=== PATIENT | female | born 1935 | race Caucasian/White ===

== ENCOUNTER 2017-11-22 13:12 | Observation (INO) | payer MEDICARE, BC ==
--- NOTE | 2017-11-22 13:46 | ERNOTE ---
Neuro HPI ER Record Presenting Symptoms: weakness Time Seen by Provider: 11/22/17 13:28 Source: patient, family Exam Limitations: no limitations Immunizations: IMMUNIZATION HX Immunizations Up to Date Yes History of Influenza Vaccine Yes Hx Pneumococcal Vaccination Yes Allergies/Adverse Reactions: Allergies Allergy/AdvReac Type Severity Reaction Status Date / Time adhesive Allergy Verified 11/22/17 13:26 Home Medications: HOME MEDICATIONS metFORMIN HCL [Metformin HCl ER] 1,000 mg PO BID 09/13/12 [Last Taken 08/15/15 08:00] Glimepiride 4 mg PO DAILY #0 09/30/12 [Last Taken 08/15/15 08:00] Enalapril Maleate [Vasotec] 20 mg PO DAILY 01/08/14 [Last Taken 08/15/15 08:00] Levothyroxine Sodium [Synthroid] 100 mcg PO DAILY 01/08/14 [Last Taken 08/15/15 08:00] Docusate Sodium [Colace] 100 mg PO BID PRN #30 capsule 01/09/14 [Last Taken 08:00] - History of Present Illness Narrative: Patient presents to the ED for progressive generalized weakness. She has been increasingly ill for 7 days. She had an abdominal paracentesis yesterday and a large amount of fluid removed. SHe feels generally SOB, gradually increasing. Increasingly fatigued and generalized weakness and malaise. No CP ro acute abdominal pain. No fever. Noting makes this better or worse. Onset: gradual onset - Character of Deficits New weakness: Present: general (diffuse) Additional Deficits: Present: weakness. Absent: vision problems Associated Symptoms: Denies: fever/chills, chest pain, headache, fainting Prior Treament: Reports: recently seen Review of Systems - Review of Systems Constitutional: Absent: fever EYE: Absent: vision changes ENT: Absent: sore throat Respiratory: Present: shortness of breath. Absent: cough Cardiology: Absent: chest pain Gastrointestinal/Abdominal: Present: See HPI Genitourinary: Absent: dysuria Skin: Absent: rash Neurological: Present: weakness All Other Systems: All systems neg except as marked - Patient's Past Medical History Patient History - Medical: Arthritis, Diabetes Type 2, Hypothyroidism, Obesity, UTI'S Patient History - Cardiac/Respiratory: Hypertension Patient History - Cancer: Breast, Other Patient History - Surgical Procedures: Appendectomy, Colonoscopy, Tubal Ligation Patient History - Other: None LMP (females 10-50): post - Family History Mother Family History - Medical: Family History - Cardiac/Respiratory: Myocardial Infarction Father Family History - Medical: Family History - Cancer: Prostate - Social History Living Situations: home Abuse History: No History of abuse Psych History: No pertinent hx Smoking Status: Former smoker Alcohol Use: none Drug Use: none - Immunizations Immunizations Up to Date: Yes Hx Pneumococcal Vaccination: Yes History of Influenza Vaccine: Yes Physical Exam - Physical Exam General Appearance: Present: alert, no apparent distress, other Head Exam: Present: normal inspection, no evidence of injury Eye Exam: Normal inspection: bilateral, PERRL: bilateral Ears, Nose, Throat: Absent: pharyngeal erythema Neck: Present: normal inspection Respiratory: Present: no respiratory distress, normal breath sounds, no accessory muscle use, lungs clear Cardiovascular/Chest: Present: regular rate, rhythm, normal peripheral pulses Gastrointestinal/Abdominal: Present: normal bowel sounds, nontender, soft Back Exam: Absent: CVA tenderness (R), CVA tenderness (L) Extremity Exam: Present: other - no deformity Neurological Exam: Present: alert, other - generalized weakness. No acute unilateral focal motor or sensory deficits Skin Exam: Present: normal color, warm/dry ED Progress - Results and Orders Patient's Lab Results:: I have reviewed the patient's lab results. - Vital Signs Patient's Vital Signs:: I have reviewed the patient's vital signs. Vital Signs: Vital Signs 11/22/17 13:20 Temperature 36.4 C L Pulse Rate 94 Respiratory 16 Rate Blood Pressure 133/77 O2 Sat by Pulse 95 Oximetry - EKG EKG: NSR EKG read: Interp. by me EKG Comments: NSR rate 90. Non-specific ST/T wave changes, no STEMI - X-Ray X-Ray #1 X-Ray: chest Interpretation: Interp. by me X-ray Comments: NAPP. Yet to be read by radiology - Progress/Reassessment Chief Complaint: Altered Mental Status Progress Note-Subjective: 11/22/17 16:22 IV fluid given. Oral lactulose ordered. Patient requests to stay here in [facility] at the hospital rather than be transferred. D/W Dr Jaramillo then with Dr Orourke. Dr Orourke will admit. Failure to thrive, generalized weakness Departure Clinical Impression: Generalized weakness, Failure to thrive in adult, Hyperammonemia - Departure Disposition: [facility] Condition: Fair Referrals: Gina Jaramillo DO [Primary Care Provider] -
[2017-11-22 14:04] LABS: Hematocrit 37.4 % (37.0-47.0); Hemoglobin 13.2 gm/dL (12.5-16.0); Mean Cell Volume 99.5 fl (78-100); Mean Corpuscular Hemoglobin 35.1 pg (27-31); Mean Corpuscular Hgb Conc 35.3 g/dl (32-36); Mean Platelet Volume 9.1 fl (6.0-9.5); NRBC# 0.2 k/mm3 (0-1); Neutrophil # 6.8 K/mm3 (1.3-6.0); Neutrophil % 72.9 % (42-75.0); Platelet Count 135 K/mm3 (150-450); Red Blood Count 3.76 M/mm3 (4.2-5.4); Red Cell Distribution Width 17.2 % (11.5-14.0); White Blood Count 9.3 K/mm3 (4.0-10.5)
[2017-11-22 14:24] LABS: ALT 44 U/L (19-67); AST 213 U/L (0-48); Albumin * 2.7 gm/dl (3.4-5.0); Alkaline Phosphatase * 253 U/L (50-170); Anion Gap 17.1 mmol/L (6.8-13.8); BUN/Creatinine Ratio 18.7 (9.0-21.6); Bilirubin, Total 1.4 mg/dL (0.0-1.1); Blood Urea Nitrogen 35 mg/dL (3-23); Ca. Corrected For Albumin 9.5 mg/dL (8.4-10.2); Calcium * 8.8 mg/dL (7.9-10.9); Carbon Dioxide 19.9 mmol/L (24-32.6); Chloride 97 mmol/L (97-106); Glucose * 283 mg/dL (70-110); Lipase 272 U/L (73-393); Sodium 129 mmol/L (132-142); Total Protein 6.4 gm/dL (6.2-8.2); Troponin I Less than 0.017 ng/ml (0.00-0.10)
[2017-11-22] MEDS: NORMAL SALINE 1,000 ML IV PRN ×2 (14:27→23:07)
[2017-11-22 15:24] LABS: Urine Bilirubin Negative (NEGATIVE); Urine Blood 25 /ul (NEGATIVE); Urine Ketone Negative (NEGATIVE); Urine Nitrite Negative (NEGATIVE); Urine Protein Negative (NEGATIVE); Urine Specific Gravity >=1.030 SP.GR. (1.005-1.010); Urine Urobilinogen Normal (NORMAL); Urine pH 5.5 pH (5.0-7.0)
[2017-11-22 15:38] LABS: Urine Appearance Clear; Urine Bacteria 1+; Urine Color Yellow; Urine WBC 0-5 /hpf (0-5)
[2017-11-22] MEDS ORDERED: LACTULOSE 10 G/15 ML BTL PO ONE (17:00)
--- NOTE | 2017-11-22 18:14 | HP ---
Chief Complaint - Chief Complaint Date of Service: 11/22/17 Time of Service: 18:07 Chief Complaint: generalized weakness History of Present Illness: Aristeo is an 82-year-old white female, patient of Dr. Jaramillo, with previous medical history of diabetes mellitus type 2, malignant breast carcinoma, metastatic to the bone, hypertension, hypothyroidism, who was admitted on 2017 because of generalized weakness. The patient was in her usual self until about a few weeks ago when she started having some increasing weakness associated with abdominal distention. She is saw her oncologist in November 05. Her CTS showed liver cirrhosis and worsening ascites. She saw Dr. Jaramillo on 11/20 to establish care. She was referred to Radiology for US guided abdominal paracentesis. 3.7 Liters were taken out. She, however, continued to be weak and came to the ER. As per patient she was told by her neighbor she looked glazed this morning. Her Ammonia level was 65. She was given lactulose in the ER. She was then admittted for observation. Her SAAG is 2 and her ascitic fluid is from portal hypertension form liver cirrhosis and unlikely a malignant ascites. She denies h/o Acute viral hepatitis in the past, JONES or heavy alcohol in the past. Her gram stain was negative , Neutrophil less than 250 and likely w/o SBP. Her TP shows it is likely a transudate. - Patient's Past Medical History Patient History - Medical: Arthritis, Diabetes Type 2, Hypothyroidism, Obesity, UTI'S Patient History - Cardiac/Respiratory: Hypertension Patient History - Cancer: Breast, Other Patient History - Surgical Procedures: Appendectomy, Colonoscopy, Tubal Ligation Patient History - Other: None LMP (females 10-50): post - Family History Mother Family History - Medical: Family History - Cardiac/Respiratory: Myocardial Infarction Father Family History - Medical: Family History - Cancer: Prostate - Social History Living Situations: home Abuse History: No History of abuse Psych History: No pertinent hx Smoking Status: Former smoker Have you smoked in the past 12 months: No Do you dip or chew tobacco: No Patient requests Smoking Cessation Consult: No Initiate information on Smoking Cessation: No Alcohol Use: none Drug Use: none - Immunizations Immunizations Up to Date: Yes Hx Pneumococcal Vaccination: Yes History of Influenza Vaccine: Yes Review Of Systems (GEN) - Review of Systems Generalized/Overall Review: Present: Weakness. Absent: Chills, Fever Respiratory: Absent: Cough, Shortness of Breath Cardiac: Absent: Chest Pain, Edema, Palpitations Abdominal: Present: Nausea. Absent: Vomiting Genitourinary: Absent: Urgency, Frequency Immunizations: IMMUNIZATION HX Immunizations Up to Date Yes History of Influenza Vaccine Yes Hx Pneumococcal Vaccination Yes Allergies/Adverse Reactions: Allergies Allergy/AdvReac Type Severity Reaction Status Date / Time adhesive Allergy Verified 11/22/17 17:57 Home Medications: HOME MEDICATIONS metFORMIN HCL [Metformin HCl ER] 500 mg PO BIDAC 09/13/12 [Last Taken 08/15/15 08:00] Glimepiride 4 mg PO DAILY #0 09/30/12 [Last Taken 08/15/15 08:00] Enalapril Maleate [Vasotec] 20 mg PO DAILY 01/08/14 [Last Taken 08/15/15 08:00] Levothyroxine Sodium [Synthroid] 125 mcg PO DAILY 01/08/14 [Last Taken 08/15/15 08:00] Docusate Sodium [Colace] 100 mg PO BID PRN #30 capsule 01/09/14 [Last Taken 08:00] Anastrozole [Arimidex] 1 mg PO DAILY 11/22/17 [Last Taken Unknown] Cholecalciferol (Vitamin D3) [Vitamin D] 2,000 unit PO DAILY 11/22/17 [Last Taken Unknown] Cyanocobalamin [Vitamin B-12] 1,000 mcg PO DAILY 11/22/17 [Last Taken Unknown] L.acidoph,Paracasei, B.lactis [Probiotic] 1 each PO DAILY 11/22/17 [Last Taken Unknown] Oxybutynin Chloride [Ditropan Xl] 15 mg PO DAILY 11/22/17 [Last Taken Unknown] Exam - Exam Vital Signs: Vital Signs - Last Taken Temp 36.9 C 11/22/17 17:32 Pulse 102 H 11/22/17 17:52 Resp 20 11/22/17 17:32 BP 115/64 11/22/17 17:32 Pulse Ox 95 11/22/17 17:32 Constitutional: Present: Alert, Oriented x3, Cooperative ENT Exam: Present: hearing grossly normal Eye Exam: bilateral eye: normal inspection, PERRL, EOMI, left eye: scleral icterus - mild Neck: Present: supple Respiratory: Present: decreased breath sounds, No rales, No wheezing Cardiovascular/Chest: Present: regular rate, rhythm, no JVD, no murmur Abdomen: Present: Normal bowel sounds, soft, nontender, obese Extremity: Present: no calf tenderness, pedal edema Diagnostic Studies: Laboratory Results WBC 9.3 K/mm3 (4.0-10.5) 11/22/17 14:01 RBC 3.76 M/mm3 (4.2-5.4) L 11/22/17 14:01 Hgb 13.2 gm/dL (12.5-16.0) 11/22/17 14:01 Hct 37.4 % (37.0-47.0) 11/22/17 14:01 MCV 99.5 fl (78-100) 11/22/17 14:01 MCH 35.1 pg (27-31) H 11/22/17 14:01 MCHC 35.3 g/dl (32-36) 11/22/17 14:01 RDW 17.2 % (11.5-14.0) H 11/22/17 14:01 Plt Count 135 K/mm3 (150-450) L 11/22/17 14:01 MPV 9.1 fl (6.0-9.5) 11/22/17 14:01 Immature Gran % (Auto) 3.10 % (0.001-0.429) H 11/22/17 14:01 Immature Gran # (Auto) 0.29 K/mm3 (0.000-0.0310) H 11/22/17 14:01 Neutrophils % 72.9 % (42-75.0) 11/22/17 14:01 Lymphocytes % 13.3 % (20-51) L 11/22/17 14:01 Monocytes % 9.8 % (0.0-9) H 11/22/17 14:01 Eosinophils % 0.4 % (0.0-3.0) 11/22/17 14:01 Basophils % 0.5 % (0.0-1.0) 11/22/17 14:01 Nucleated RBC % 0.2 k/mm3 (0-1) 11/22/17 14:01 Neutrophils # 6.8 K/mm3 (1.3-6.0) H 11/22/17 14:01 Lymphocytes # 1.2 k/mm3 (1.5-3.5) L 11/22/17 14:01 Monocytes # 0.9 k/mm3 (0.0-1.0) 11/22/17 14:01 Eosinophils # 0.0 k/mm3 (0.0-0.7) 11/22/17 14:01 Absolute Basophils 0.1 k/mm3 (0.0-0.1) 11/22/17 14:01 Sodium 129 mmol/L (132-142) L 11/22/17 14:01 Plasma Sodium 132 mmol/L (130-142) 11/22/17 14:01 Potassium 5.0 mmol/L (3.4-4.6) H 11/22/17 14:01 Chloride 97 mmol/L (97-106) 11/22/17 14:01 Carbon Dioxide 19.9 mmol/L (24-32.6) L 11/22/17 14:01 Anion Gap 17.1 mmol/L (6.8-13.8) H 11/22/17 14:01 BUN 35 mg/dL (3-23) H 11/22/17 14:01 Creatinine 1.87 mg/dL (0.4-1.4) H 11/22/17 14:01 Est GFR (Non-Af Amer) 27 mL/min (60-130) L 11/22/17 14:01 BUN/Creatinine Ratio 18.7 (9.0-21.6) 11/22/17 14:01 Random Glucose 283 mg/dL (70-110) H 11/22/17 14:01 Lactic Acid, Venous 3.1 mmol/L (0.4-1.9) H* 11/22/17 14:01 Calcium 8.8 mg/dL (7.9-10.9) 11/22/17 14:01 Calcium Adj for Albumin 9.5 mg/dL (8.4-10.2) 11/22/17 14:01 Total Bilirubin 1.4 mg/dL (0.0-1.1) H 11/22/17 14:01 AST 213 U/L (0-48) H 11/22/17 14:01 ALT 44 U/L (19-67) 11/22/17 14:01 Alkaline Phosphatase 253 U/L (50-170) H 11/22/17 14:01 Ammonia 65.0 mcmol/L (11-35) H 11/22/17 14:01 Troponin I Less than 0.017 ng/ml (0.00-0.10) 11/22/17 14:01 Total Protein 6.4 gm/dL (6.2-8.2) 11/22/17 14:01 Albumin 2.7 gm/dl (3.4-5.0) L 11/22/17 14:01 Lipase 272 U/L (73-393) 11/22/17 14:01 Urine Color Yellow 11/22/17 15:17 Urine Appearance Clear 11/22/17 15:17 Urine pH 5.5 pH (5.0-7.0) 11/22/17 15:17 Ur Specific [place] >=1.030 SP.GR. (1.005-1.010) 11/22/17 15:17 Urine Protein Negative mg/dL (NEGATIVE) 11/22/17 15:17 Urine Glucose (UA) Negative mg/dL (NEGATIVE) 11/22/17 15:17 Urine Ketones Negative mg/dL (NEGATIVE) 11/22/17 15:17 Urine Blood 25 /ul (NEGATIVE) H 11/22/17 15:17 Urine Nitrate Negative (NEGATIVE) 11/22/17 15:17 Urine Bilirubin Negative mg/dl (NEGATIVE) 11/22/17 15:17 Urine Urobilinogen Normal EU/dl (NORMAL) 11/22/17 15:17 Ur Leukocyte Esterase Negative /ul (NEGATIVE) 11/22/17 15:17 Urine RBC 5-10 /hpf (0-5) H 11/22/17 15:17 Urine WBC 0-5 /hpf (0-5) 11/22/17 15:17 Ur Epithelial Cells 0-5 /hpf (0-5) 11/22/17 15:17 Urine Bacteria 1+ (NONE) H 11/22/17 15:17 Hyaline Casts 5-10 /LPF (NONE) H 11/22/17 15:17 Urine Culture Comments Culture to follow 11/22/17 15:17 Influenza Type A Ag Negative (NEGATIVE) 11/22/17 14:30 Influenza Type B Ag Negative (NEGATIVE) 11/22/17 14:30 Assessment/Plan - Assessment/Plan (1) Generalized weakness Assessment: will get PT/OT eval Problem: Acute (2) Ascites of liver Assessment: s/p paracentesis. likley due to portal HTN from liver cirrhosis. etiology? . start lasix/spironolactone. less than 2 grams diet. Problem: Acute (3) Hyperammonemia Assessment: continue with lactulose. consider Rafaximin. Problem: Acute (4) Breast cancer metastasized to bone Problem: Acute (5) Diabetes mellitus Problem: Chronic Qualifiers: Diabetes mellitus type: type 2 Diabetes mellitus complication status: without complication
[2017-11-22] MEDS ORDERED: ZOLPIDEM TARTRATE 5 MG TABLET PO PRN (18:58)
[2017-11-22] MEDS ORDERED: FUROSEMIDE 40 MG TABLET ONE (21:01)
[2017-11-22] MEDS: PROPRANOLOL HCL 10 MG TABLET PO SCH (21:12)
[2017-11-22] MEDS: FUROSEMIDE 20 MG TABLET PO SCH (21:12)
[2017-11-22] MEDS: LACTULOSE 10 G/15 ML BTL PO SCH ×2 (21:13→23:10)
[2017-11-23 06:30] LABS: Albumin * 2.4 gm/dl (3.4-5.0); Anion Gap 16.7 mmol/L (6.8-13.8); BUN/Creatinine Ratio 19.6 (9.0-21.6); Bilirubin, Total 1.2 mg/dL (0.0-1.1); Chol/HDL Risk Ratio 7.2 mg/dL (3.3-4.4); Potassium 4.7 mmol/L (3.4-4.6); Total Protein 5.6 gm/dL (6.2-8.2)
[2017-11-23] MEDS ORDERED: LEVOTHYROXINE SODIUM 125 MCG TABLET PO SCH (07:00)
[2017-11-23] MEDS: NORMAL SALINE 1,000 ML IV PRN (07:25)
[2017-11-23] MEDS: PROPRANOLOL HCL 10 MG TABLET PO SCH (09:00)
[2017-11-23] MEDS ORDERED: ENALAPRIL MALEATE 20 MG TABLET PO SCH (09:00)
[2017-11-23] MEDS ORDERED: SPIRONOLACTONE 25 MG TABLET PO SCH (09:00)
[2017-11-23] MEDS ORDERED: OXYBUTYNIN CHLORIDE 5 MG TABLET PO SCH (09:00)
[2017-11-23] MEDS ORDERED: CHOLECALCIFEROL 1,000 UNIT CAPSULE PO SCH (09:00)
[2017-11-23] MEDS ORDERED: LACTOBACILLUS ACIDOPHILUS 100 CAP BTL PO SCH (09:00)
[2017-11-23] MEDS ORDERED: CYANOCOBALAMIN 1,000 MCG TABLET PO SCH (09:00)
[2017-11-23] MEDS ORDERED: GLIMEPIRIDE 4 MG TABLET PO SCH (09:00)
[2017-11-23] MEDS: LACTULOSE 10 G/15 ML BTL PO SCH (09:04)
[2017-11-23] MEDS: FUROSEMIDE 20 MG TABLET PO SCH (11:32)
[2017-11-23 11:39] VITALS: BP 138/59
--- NOTE | 2017-11-23 12:32 | DS ---
(1) Generalized weakness Diagnosis(s): Acute on chronic Problem: Acute (2) Hyperammonemia Problem: Acute (3) Liver cirrhosis Problem: Acute Qualifiers: Ascites presence: with ascites (4) Ascites Problem: Chronic (5) Breast cancer metastasized to bone Problem: Chronic Description of Stay: ADMISSION DATE: 11/22/2017 DISCHARGE DATE: 11/23/[address] Orourke: Aristeo is an 82-year-old white female, patient of Dr. Jaramillo, with previous medical history of diabetes mellitus type 2, malignant breast carcinoma, metastatic to the bone, hypertension, hypothyroidism, who was admitted on 2017 because of generalized weakness. The patient was in her usual self until about a few weeks ago when she started having some increasing weakness associated with abdominal distention. She is saw her oncologist in November 05. Her CTS showed liver cirrhosis and worsening ascites. She saw Dr. Jaramillo on 11/20 to establish care. She was referred to Radiology for US guided abdominal paracentesis. 3.7 Liters were taken out. She, however, continued to be weak and came to the ER. As per patient she was told by her neighbor she looked glazed this morning. Her Ammonia level was 65. She was given lactulose in the ER. She was then admittted for observation. Her SAAG is 2 and her ascitic fluid is from portal hypertension form liver cirrhosis and unlikely a malignant ascites. She denies h/o Acute viral hepatitis in the past, JONES or heavy alcohol in the past. Her gram stain was negative , Neutrophil less than 250 and likely w/o SBP. Her TP shows it is likely a transudate. HOSPITAL COURSE: The patient was admitted for generalized weakness. She was recently found to have suspected liver cirrhosis with ascites and underwent a diagnostic and therapeutic paracentesis on 11/21/2017. The patients hospital course was uneventful and she was discharged home in stable condition with home health care arranged for PT, OT, RN and aide. She will follow-up with me next week to discuss the results of her paracentesis and discuss possible need for a liver biopsy. FOLLOW-UP APPOINTMENTS: -Keep already scheduled appointment with Dr. Jaramillo on Sunday11/26/2017 @ 3668 -Check ammonia level and BMP on 11/26/2017 NEW OR CHANGED MEDICATIONS: -Furosemide 20mg PO daily -Spironolactone 50mg PO daily -Propranolol 10mg PO BID -Lactulose 10g PO Q4H titrated to 2-3 soft BMs per day DISCONTINUED MEDICATIONS: None RADIOLOGY REPORTS: Single view chest x-ray on 11/22/2017: Hypoventilatory changes. No definite focal acute cardiopulmonary finding. Procedures Performed: none Discharge Disposition: Home w/home health care Disposition: Home self-care Condition: Stable Discharge Activity: Activity as tolerated Discharge Diet: Consistent carbs, Low salt Referrals: Gina Jaramillo DO [Primary Care Provider] - Problem Oriented Discharge Instructions to Patient/Family: Fall Prevention in the Home, [id number] Additional Patient Instructions (free text): -Please make TCM appointment unless longterm discharge. Thank you! Avis @ ext:[phone]. [facility], OT, RN and aide -Check ammonia level and BMP on 11/26/2017 -Keep already scheduled appointment with Dr. Jaramillo on Sunday11/26/2017 @ 8465 Prescriptions (Any new or edited meds): Furosemide [Lasix] 20 mg PO DAILY #30 tablet Lactulose [Enulose] 10 g PO Q4H #1 btl Propranolol HCl [Inderal] 10 mg PO Q12H #60 tablet Spironolactone [Aldactone] 50 mg PO DAILY #30 tablet Complete Home Medications List: Complete Home Medication List: metFORMIN HCL [Metformin HCl ER] 500 mg PO BIDAC 09/13/12 Glimepiride 4 mg PO DAILY #0 09/30/12 Enalapril Maleate [Vasotec] 20 mg PO DAILY 01/08/14 Levothyroxine Sodium [Synthroid] 125 mcg PO DAILY 01/08/14 Docusate Sodium [Colace] 100 mg PO BID PRN #30 capsule 01/09/14 Anastrozole [Arimidex] 1 mg PO DAILY 11/22/17 Cholecalciferol (Vitamin D3) [Vitamin D3] 2,000 unit PO DAILY 11/22/17 Cyanocobalamin [Vitamin B-12] 1,000 mcg PO DAILY 11/22/17 L.acidoph,Paracasei, B.lactis [Probiotic] 1 each PO DAILY 11/22/17 Oxybutynin Chloride [Ditropan Xl] 15 mg PO DAILY 11/22/17 Furosemide [Lasix] 20 mg PO DAILY #30 tablet 11/23/17 Lactulose [Enulose] 10 g PO Q4H #1 btl 11/23/17 Propranolol HCl [Inderal] 10 mg PO Q12H #60 tablet 11/23/17 Spironolactone [Aldactone] 50 mg PO DAILY #30 tablet 11/23/17 Amb Orders for Discharge: Ammonia Time Frame: 11/26/17, Location: Determined By Patient Basic Metabolic Panel Time Frame: 11/26/17, Location: Determined By Patient
[2017-11-24 11:52] LABS: Hepatitis C Antibody NON-REACTIVE (NON-REACTIVE); Hepatitis Panel Confirmation DNR
[2017-11-24 20:07] LABS: Hepatitis A IgM Antibody NON-REACTIVE (NON-REACTIVE); Hepatitis B Surface Antigen NON-REACTIVE (NON-REACTIVE)
== END 2017-11-23 14:30 | disposition home health service (06) ==
LOC: ER 13:12 → SUPCPDRO 13:12 → MS 16:25
PROVIDERS: ADMIT Internal Medicine; ATTEND Internal Medicine
DX: R53.1 Weakness; C79.51 Secondary malignant neoplasm of bone; E11.9 Type 2 diabetes mellitus without complications; E78.5 Hyperlipidemia, unspecified; C50.919 Malignant neoplasm of unspecified site of unspecified female breast; E72.20 Disorder of urea cycle metabolism, unspecified; I10 Essential (primary) hypertension; Z79.84 Long term (current) use of oral hypoglycemic drugs; R18.8 Other ascites; Z68.34 Body mass index [BMI] 34.0-34.9, adult; K74.69 Other cirrhosis of liver; E78.2 Mixed hyperlipidemia
CPT/HCPCS: 36415; 71045; 80053; 80061; 80074; 81001; 82140; 83605; 83690; 84484; 85025; 87086; 87400; 93005; 97110; 97116; 97161; 97165; 97530; 99285; G0378; G8978; G8979; G8980; G8987; G8988; G8989

== ENCOUNTER 2017-11-25 15:37 | Inpatient (IN) | payer MEDICARE, BC ==
[2017-11-25 16:14] LABS: Hematocrit 41.4 % (37.0-47.0); Hemoglobin 14.5 gm/dL (12.5-16.0); Mean Cell Volume 99.3 fl (78-100); Mean Corpuscular Hemoglobin 34.8 pg (27-31); Mean Platelet Volume 9.2 fl (6.0-9.5); NRBC# 0.3 k/mm3 (0-1); Neutrophil # 8.6 K/mm3 (1.3-6.0); Neutrophil % 70.6 % (42-75.0); Platelet Count 107 K/mm3 (150-450); Red Blood Count 4.17 M/mm3 (4.2-5.4); Red Cell Distribution Width 17.6 % (11.5-14.0); White Blood Count 12.2 K/mm3 (4.0-10.5)
[2017-11-25 16:36] LABS: ALT 60 U/L (19-67); AST 315 U/L (0-48); Albumin * 2.6 gm/dl (3.4-5.0); Alkaline Phosphatase * 303 U/L (50-170); Anion Gap 18.7 mmol/L (6.8-13.8); BUN/Creatinine Ratio 19.5 (9.0-21.6); Bilirubin, Total 1.7 mg/dL (0.0-1.1); Blood Urea Nitrogen 45 mg/dL (3-23); Ca. Corrected For Albumin 9.2 mg/dL (8.4-10.2); Calcium * 8.4 mg/dL (7.9-10.9); Carbon Dioxide 17.2 mmol/L (24-32.6); Chloride 98 mmol/L (97-106); Glucose * 140 mg/dL (70-110); Lipase 272 U/L (73-393); Potassium 4.9 mmol/L (3.4-4.6); Sodium 129 mmol/L (132-142); Total Protein 6.1 gm/dL (6.2-8.2); Troponin I Less than 0.017 ng/ml (0.00-0.10)
[2017-11-25] MEDS ORDERED: NORMAL SALINE 1,000 ML IV ONE (16:39)
[2017-11-25 16:48] LABS: Urine Appearance Clear; Urine Bacteria TRACE; Urine Bilirubin 1 mg/dl (NEGATIVE); Urine Blood 25 /ul (NEGATIVE); Urine Color Yellow; Urine Ketone 5 mg/dL (NEGATIVE); Urine Nitrite Negative (NEGATIVE); Urine Protein Negative (NEGATIVE); Urine RBC 0-5 /hpf (0-5); Urine Urobilinogen Normal (NORMAL); Urine WBC 0-5 /hpf (0-5)
[2017-11-25 16:49] LABS: Urine Hyaline Cast 0-5 /LPF
--- NOTE | 2017-11-25 17:04 | ERNOTE ---
Medical Problem HPI - Narrative Date of Service: 11/25/17 - General Chief Complaint: Nausea/Vomiting Time Seen by Provider: 11/25/17 15:39 Source: patient Exam Limitations: no limitations - Immun/Allergies/Home Medications Immunizations: IMMUNIZATION HX Immunizations Up to Date Yes History of Influenza Vaccine Yes Hx Pneumococcal Vaccination Yes Allergies/Adverse Reactions: Allergies adhesive Allergy (Verified 11/22/17 17:57) Home Medications: HOME MEDICATIONS metFORMIN HCL [Metformin HCl ER] 500 mg PO BIDAC 09/13/12 [Last Taken 08/15/15 08:00] Glimepiride 4 mg PO DAILY #0 09/30/12 [Last Taken 08/15/15 08:00] Enalapril Maleate [Vasotec] 20 mg PO DAILY 01/08/14 [Last Taken 08/15/15 08:00] Levothyroxine Sodium [Synthroid] 125 mcg PO DAILY 01/08/14 [Last Taken 08/15/15 08:00] Docusate Sodium [Colace] 100 mg PO BID PRN #30 capsule 01/09/14 [Last Taken 08:00] Anastrozole [Arimidex] 1 mg PO DAILY 11/22/17 [Last Taken Unknown] Cholecalciferol (Vitamin D3) [Vitamin D3] 2,000 unit PO DAILY 11/22/17 [Last Taken Unknown] Cyanocobalamin [Vitamin B-12] 1,000 mcg PO DAILY 11/22/17 [Last Taken Unknown] L.acidoph,Paracasei, B.lactis [Probiotic] 1 each PO DAILY 11/22/17 [Last Taken Unknown] Oxybutynin Chloride [Ditropan Xl] 15 mg PO DAILY 11/22/17 [Last Taken Unknown] Furosemide [Lasix] 20 mg PO DAILY #30 tablet 11/23/17 [Last Taken Unknown] Lactulose [Enulose] 10 g PO Q4H #1 btl 11/23/17 [Last Taken Unknown] Propranolol HCl [Inderal] 10 mg PO Q12H #60 tablet 11/23/17 [Last Taken Unknown] Spironolactone [Aldactone] 50 mg PO DAILY #30 tablet 11/23/17 [Last Taken Unknown] - History of Present History Narrative: Patient presents to the ED with generalized weakness that has gradually progressive since being discharged from the hospital. She relates not much of an appetite. No fever. Only a little to eat and drink over the last 2 days. Severe generalized weakness, no focal weakness. She has gotten so weak that she cannt walk to get around at home. Brought in by EMS. Some diarrhea but no blood. Nausea but no vomiting. No CP or SOB. No abdominal pain. Timing: getting worse Severity: severe Modifying Factors - (Improves): Present: other - nothing Modifying Factors - (Worsens): Present: other - nothing Review of Systems - Review of Systems Constitutional: Absent: fever ENT: Absent: sore throat Respiratory: Absent: shortness of breath Cardiology: Absent: chest pain Gastrointestinal/Abdominal: Present: nausea. Absent: abdominal pain Genitourinary: Absent: dysuria Neurological: Present: weakness All Other Systems: All systems neg except as marked - Patient's Past Medical History Patient History - Medical: Arthritis, Diabetes Type 2, Hypothyroidism, Obesity, UTI'S Patient History - Cardiac/Respiratory: Hypertension Patient History - Cancer: Breast, Other Patient History - Surgical Procedures: Appendectomy, Colonoscopy, Tubal Ligation Patient History - Other: None LMP (females 10-50): Menopausal - Family History Mother Family History - Medical: Family History - Cardiac/Respiratory: Myocardial Infarction Father Family History - Medical: Family History - Cancer: Prostate - Social History Living Situations: home Abuse History: No History of abuse Psych History: No pertinent hx Smoking Status: Former smoker Have you smoked in the past 12 months: No Do you dip or chew tobacco: No Alcohol Use: sober Drug Use: none - Immunizations Immunizations Up to Date: Yes Hx Pneumococcal Vaccination: Yes History of Influenza Vaccine: Yes Physical Exam - Physical Exam General Appearance: Present: alert, other - displays generalized weakness but no acute unilateral focal weakness. Head Exam: Present: normal inspection, no evidence of injury Eye Exam: Normal inspection: bilateral, PERRL: bilateral Ears, Nose, Throat: Present: dry mucous membranes Neck: Present: normal inspection Respiratory: Present: no respiratory distress, normal breath sounds, no accessory muscle use, lungs clear Cardiovascular/Chest: Present: regular rate, rhythm, normal peripheral pulses Gastrointestinal/Abdominal: Present: normal bowel sounds, nontender, soft Back Exam: Absent: CVA tenderness (R), CVA tenderness (L) Extremity Exam: Present: other - no deformity Neurological Exam: Present: alert, other - generalized weakness but no acute unilateral focal motor or sensory deficits. Skin Exam: Present: normal color, warm/dry ED Progress - Results and Orders Patient's Lab Results:: I have reviewed the patient's lab results. - Vital Signs Patient's Vital Signs:: I have reviewed the patient's vital signs. Vital Signs: Vital Signs 11/25/17 11/25/17 15:38 16:25 Temperature 36.4 C L Pulse Rate 60 64 Respiratory 18 16 Rate Blood Pressure 124/51 104/48 O2 Sat by Pulse 94 97 Oximetry - EKG EKG: NSR EKG read: Interp. by me EKG Comments: Sinus angelika, rate 55, non-specific ST.T wave changes, no STEMI. - Progress/Reassessment Chief Complaint: Nausea/Vomiting Progress Note-Subjective: 11/25/17 17:00 IV fluids started. IV antibiotics given prophylactically. D/W Dr Orourke, he requests abdomen US - ordered. She will be admitted. Family was not in room , I checked in the waiting room for them but could not find them, I will inform them if they return to the ED. Patient agreeable. Departure Clinical Impression: Generalized weakness, Hyponatremia, Elevated serum creatinine, Elevated lactic acid level - Departure Disposition: [facility] Condition: Poor
--- NOTE | 2017-11-25 21:03 | HP ---
Chief Complaint - Chief Complaint Date of Service: 11/25/17 Time of Service: 21:00 Chief Complaint: "Weakness, nausea, vomiting". Source of HPI- Pt; reliable, ERP notes, Pt's EMR. History of Present Illness: Mrs. Kaiser is a 82-yr-old WF pt of Dr. Gina Jaramillo with a PMH of: Breast Ca with bone mets, Chronic Renal Failure, Cirrhosis of the Liver with Ascites, DM II, Depression, HTN & Hypothyroidism. Pt states that since being discharged from the hospital this week, she has gotten more weaker and cannot care for herself. She reports having n/v and diarrhea for the last three days. She denies the associated symptoms of fevers, chills and abdominal pain. She was brought to [facility] ER this evening by the EMS. She was recently admitted on 11/22/17 due to generalized weakness and was discharged home on 11/23 following uneventful hospital stay and arrangements with [facility] for PT/OT were made. Prior to previous hospitalization, she had been found to have Ascites due to Liver Cirrhosis on . She had abdominal paracentesis on 11/21 where 3.7 L of fluid was drained for therapetic and diagnostic purposes. On discharge date, she was started on new meds: Furosemide 20mg daily, Spironolactone 50mg daily, Propranolol 10mg BID , Lactulose 10g Q4H (titrated to 2-3 soft BMs per day). At the ED today, Lab studies showed WBC--> 12,200, Lactic acid--> 3.3, Na+--> 129, K+--> 4.9, BUN/CR- ->45/2.31, Total Bili-->1.7, AST-->315, ALP--> 303. UA was negative for infection. Influenza screen was also negative. She had an abdominal US to assess for Ascites and there was significantly less fluid seen compared to the US on 11/21, but mild ascites was noted. - Patient's Past Medical History Patient History - Medical: Arthritis, Diabetes Type 2, Hypothyroidism, Obesity, UTI'S Patient History - Cardiac/Respiratory: Hypertension Patient History - Cancer: Breast, Other Patient History - Surgical Procedures: Appendectomy, Colonoscopy, Tubal Ligation Patient History - Other: None LMP (females 10-50): Menopausal - Family History Mother Family History - Medical: Family History - Cardiac/Respiratory: Myocardial Infarction Father Family History - Medical: Family History - Cancer: Prostate - Social History Living Situations: spouse Abuse History: No History of abuse Psych History: No pertinent hx Smoking Status: Former smoker Have you smoked in the past 12 months: No Do you dip or chew tobacco: No Alcohol Use: sober Drug Use: none - Immunizations Immunizations Up to Date: Yes Hx Pneumococcal Vaccination: Yes History of Influenza Vaccine: Yes Review Of Systems (GEN) - Review of Systems Generalized/Overall Review: Present: Weakness, Malaise, Fatigue. Absent: Chills , Fever, Diaphoresis EENTM: Absent: Eye Pain, Blurred Vision, Nose Congestion Respiratory: Absent: Cough, Shortness of Breath, Orthopnea Cardiac: Absent: Chest Pain, Edema, Palpitations, Syncope Abdominal: Present: Nausea, Vomiting, Diarrhea. Absent: Hematemesis, Abdominal Pain, Constipation Genitourinary: Absent: Burning, Itching, Frequency Musculoskeletal: Absent: Joint Pain, Back Pain, Joint Swelling Neurological: Present: Depressed, Weakness. Absent: Headache, Anxiety Skin: Present: Dryness. Absent: Lesions, Lumps, Bruising Endocrine: Present: Intolerance to Cold Misc: All systems neg except as marked Immunizations: IMMUNIZATION HX Immunizations Up to Date Yes History of Influenza Vaccine Yes Hx Pneumococcal Vaccination Yes Allergies/Adverse Reactions: Allergies Allergy/AdvReac Type Severity Reaction Status Date / Time adhesive Allergy Verified 11/25/17 17:44 Home Medications: HOME MEDICATIONS metFORMIN HCL [Metformin HCl ER] 500 mg PO BIDAC 09/13/12 [Last Taken 08/15/15 08:00] Glimepiride 4 mg PO DAILY #0 09/30/12 [Last Taken 08/15/15 08:00] Enalapril Maleate [Vasotec] 20 mg PO DAILY 01/08/14 [Last Taken 08/15/15 08:00] Levothyroxine Sodium [Synthroid] 125 mcg PO DAILY 01/08/14 [Last Taken 08/15/15 08:00] Docusate Sodium [Colace] 100 mg PO BID PRN #30 capsule 01/09/14 [Last Taken 08:00] Anastrozole [Arimidex] 1 mg PO DAILY 11/22/17 [Last Taken Unknown] Cholecalciferol (Vitamin D3) [Vitamin D3] 2,000 unit PO DAILY 11/22/17 [Last Taken Unknown] Cyanocobalamin [Vitamin B-12] 1,000 mcg PO DAILY 11/22/17 [Last Taken Unknown] L.acidoph,Paracasei, B.lactis [Probiotic] 1 each PO DAILY 11/22/17 [Last Taken Unknown] Oxybutynin Chloride [Ditropan Xl] 15 mg PO DAILY 11/22/17 [Last Taken Unknown] Furosemide [Lasix] 20 mg PO DAILY #30 tablet 11/23/17 [Last Taken Unknown] Lactulose [Enulose] 10 g PO Q4H #1 btl 11/23/17 [Last Taken Unknown] Propranolol HCl [Inderal] 10 mg PO Q12H #60 tablet 11/23/17 [Last Taken Unknown] Spironolactone [Aldactone] 50 mg PO DAILY #30 tablet 11/23/17 [Last Taken Unknown] Exam - Exam Vital Signs: Vital Signs - Last Taken Temp 36.2 C L 11/25/17 18:45 Pulse 58 L 11/25/17 19:12 Resp 18 11/25/17 18:45 BP 126/69 11/25/17 18:45 Pulse Ox 97 11/25/17 18:45 Constitutional: Present: Alert, Oriented x3, Cooperative, Mild distress, Elderly ENT Exam: Present: normal ENT inspection, dry mucous membranes Eye Exam: bilateral eye: normal inspection, PERRL Neck: Present: non-tender, full range of motion, supple Back Exam: Present: normal inspection, no CVA tenderness Breasts: Present: Exam deferred Respiratory: Present: no accessory muscle use, No rales, No wheezing Cardiovascular/Chest: Present: normal peripheral pulses, regular rate, rhythm, no chest tenderness, no edema Abdomen: Present: Normal bowel sounds, soft, nontender, obese /Rectal: Present: Exam deferred Extremity: Present: normal range of motion, non-tender, normal inspection Skin Exam: Present: warm/dry, no cyanosis Lymphatic: Present: no adenopathy Neurologic: Present: no motor/sensory deficits, alert, depressed affect Appearance: Present: appropriate appearance, appropriate insight Eye contact: Present: cooperative, good eye contact, decreased rate of speech Thoughts: Present: normal thought pattern, no apparent hallucination Diagnostic Studies: Abnormal Lab Results 11/25/17 Range/Units 18:28 Lactic Acid, Venous 3.0 H* (0.4-1.9) mmol/L Laboratory Results WBC 12.2 K/mm3 (4.0-10.5) H 11/25/17 16:05 RBC 4.17 M/mm3 (4.2-5.4) L 11/25/17 16:05 Hgb 14.5 gm/dL (12.5-16.0) 11/25/17 16:05 Hct 41.4 % (37.0-47.0) 11/25/17 16:05 MCV 99.3 fl (78-100) 11/25/17 16:05 MCH 34.8 pg (27-31) H 11/25/17 16:05 MCHC 35.0 g/dl (32-36) 11/25/17 16:05 RDW 17.6 % (11.5-14.0) H 11/25/17 16:05 Plt Count 107 K/mm3 (150-450) L 11/25/17 16:05 MPV 9.2 fl (6.0-9.5) 11/25/17 16:05 Immature Gran % (Auto) 4.30 % (0.001-0.429) H 11/25/17 16:05 Immature Gran # (Auto) 0.52 K/mm3 (0.000-0.0310) H 11/25/17 16:05 Neutrophils % 70.6 % (42-75.0) 11/25/17 16:05 Lymphocytes % 16.3 % (20-51) L 11/25/17 16:05 Monocytes % 7.9 % (0.0-9) 11/25/17 16:05 Eosinophils % 0.2 % (0.0-3.0) 11/25/17 16:05 Basophils % 0.7 % (0.0-1.0) 11/25/17 16:05 Nucleated RBC % 0.3 k/mm3 (0-1) 11/25/17 16:05 Neutrophils # 8.6 K/mm3 (1.3-6.0) H 11/25/17 16:05 Lymphocytes # 2.0 k/mm3 (1.5-3.5) 11/25/17 16:05 Monocytes # 1.0 k/mm3 (0.0-1.0) 11/25/17 16:05 Eosinophils # 0.0 k/mm3 (0.0-0.7) 11/25/17 16:05 Absolute Basophils 0.1 k/mm3 (0.0-0.1) 11/25/17 16:05 Sodium 129 mmol/L (132-142) L 11/25/17 16:05 Plasma Sodium 130 mmol/L (130-142) 11/25/17 16:05 Potassium 4.9 mmol/L (3.4-4.6) H 11/25/17 16:05 Chloride 98 mmol/L (97-106) 11/25/17 16:05 Carbon Dioxide 17.2 mmol/L (24-32.6) L 11/25/17 16:05 Anion Gap 18.7 mmol/L (6.8-13.8) H 11/25/17 16:05 BUN 45 mg/dL (3-23) H 11/25/17 16:05 Creatinine 2.31 mg/dL (0.4-1.4) H D 11/25/17 16:05 Est GFR (Non-Af Amer) 21 mL/min (60-130) L D 11/25/17 16:05 BUN/Creatinine Ratio 19.5 (9.0-21.6) 11/25/17 16:05 Random Glucose 140 mg/dL (70-110) H 11/25/17 16:05 Lactic Acid, Venous 3.0 mmol/L (0.4-1.9) H* 11/25/17 18:28 Calcium 8.4 mg/dL (7.9-10.9) 11/25/17 16:05 Calcium Adj for Albumin 9.2 mg/dL (8.4-10.2) 11/25/17 16:05 Total Bilirubin 1.7 mg/dL (0.0-1.1) H 11/25/17 16:05 AST 315 U/L (0-48) H 11/25/17 16:05 ALT 60 U/L (19-67) 11/25/17 16:05 Alkaline Phosphatase 303 U/L (50-170) H 11/25/17 16:05 Ammonia 32.0 mcmol/L (11-35) 11/25/17 16:05 Troponin I Less than 0.017 ng/ml (0.00-0.10) 11/25/17 16:05 Total Protein 6.1 gm/dL (6.2-8.2) L 11/25/17 16:05 Albumin 2.6 gm/dl (3.4-5.0) L 11/25/17 16:05 Lipase 272 U/L (73-393) 11/25/17 16:05 Urine Color Yellow 11/25/17 16:23 Urine Appearance Clear 11/25/17 16:23 Urine pH 5.0 pH (5.0-7.0) 11/25/17 16:23 Ur Specific [place] 1.030 SP.GR. (1.005-1.010) 11/25/17 16:23 Urine Protein Negative mg/dL (NEGATIVE) 11/25/17 16:23 Urine Glucose (UA) Negative mg/dL (NEGATIVE) 11/25/17 16:23 Urine Ketones 5 mg/dL (NEGATIVE) 11/25/17 16:23 Urine Blood 25 /ul (NEGATIVE) H 11/25/17 16:23 Urine Nitrate Negative (NEGATIVE) 11/25/17 16:23 Urine Bilirubin 1 mg/dl (NEGATIVE) H 11/25/17 16:23 Urine Ictotest Positive (NEGATIVE) H 11/25/17 16:23 Urine Urobilinogen Normal EU/dl (NORMAL) 11/25/17 16:23 Ur Leukocyte Esterase Negative /ul (NEGATIVE) 11/25/17 16:23 Urine RBC 0-5 /hpf (0-5) 11/25/17 16:23 Urine WBC 0-5 /hpf (0-5) 11/25/17 16:23 Ur Epithelial Cells 0-5 /hpf (0-5) 11/25/17 16:23 Urine Bacteria Trace (NONE) 11/25/17 16:23 Hyaline Casts 0-5 /LPF (NONE) H 11/25/17 16:23 Urine Culture Comments No culture indicated 11/25/17 16:23 Influenza Type A Ag Negative (NEGATIVE) 11/25/17 15:50 Influenza Type B Ag Negative (NEGATIVE) 11/25/17 15:50 Assessment/Plan - Assessment/Plan (1) Acute on chronic kidney failure Assessment: Pt has Acute on Chronic Kidney failure associated with hyperkalemia and is likely due to dehydration from Lasix & spironolactone. Will provide gentle IVF hydration for now. Hold the diuretics and OLIVIA inhibititors. If no improvement in kidney function with fluid hydration, hepatorenal syndrome is also possible-common renal function impairment in patients with advanced liver disease without evidence of severe volume loss, nephrotoxicity from medications & renal parenchymal disease. Monitor BMP in am. Laboratory Tests 11/13/17 11/20/17 11/22/17 07:41 10:25 14:01 Potassium BUN Creatinine 2.05 H 2.12 H 1.87 H 11/23/17 11/25/17 06:11 16:05 Potassium 4.9 H BUN 45 H Creatinine 1.58 H 2.31 H D Problem: Acute (2) Ascites Assessment: Noted to have moderate Ascites on the Abdominal US but there was significant improvement from previous US on 11/21. She underwent therapeutic and diagnostic paracentesis on 11/21 with 3.7 L of fluid being pulled. Results are still pending. Management also involve diuretics but due to declined kidney function, will hold off for now. Problem: Chronic (3) Hyponatremia Assessment: Na of 129 on admission, and is likely Hypovolemic Hyponatremia due to GI losses from N/V, or renal volume loses from diuretics. Will provide IVF hydration. If no improvement with IVF hydration, can also likely due to Hypervolemic Hyponatremia from Cirrhosis- treatment would involve Na and < 1 L F.R /day & diuretic therapy. Problem: Acute (4) Generalized weakness Assessment: Will involve PT/OT- Consider placement post hospitalization for continued strengthening. Problem: Acute (5) Diabetes mellitus Assessment: Pt kept NPO due to N/V. Will hold oral glycemic medications to reduce hypoglycemic effects. Monitor Accucheck q 6 hrs and may consider changing to IVF with dextrose. Problem: Chronic Qualifiers: Diabetes mellitus type: type 2 Diabetes mellitus complication status: without complication (6) Breast cancer metastasized to bone Assessment: According to her oncologist's most recent visit on 11/19/17, pt's metastatic cancer to the bones is under relatively good control. She is currently on Fulvestrant & Xgeva. Florecita gayle on hold by the onc. Problem: Chronic (7) HTN (hypertension) Problem: Chronic Qualifiers: Hypertension type: essential hypertension Qualified Code(s): I10 - Essential (primary) hypertension (8) Depression Problem: Chronic
[2017-11-25] MEDS ORDERED: PANTOPRAZOLE SODIUM 40 MG in NORMAL SALINE 100 ML IV SCH (23:15)
[2017-11-25] MEDS: NORMAL SALINE 1,000 ML IV PRN (23:43)
[2017-11-26 06:15] LABS: Hematocrit 40.2 % (37.0-47.0); Hemoglobin 14.2 gm/dL (12.5-16.0); Mean Cell Volume 99.3 fl (78-100); Mean Corpuscular Hemoglobin 35.1 pg (27-31); Mean Corpuscular Hgb Conc 35.3 g/dl (32-36); Mean Platelet Volume 9.2 fl (6.0-9.5); NRBC# 0.4 k/mm3 (0-1); Neutrophil # 8.7 K/mm3 (1.3-6.0); Neutrophil % 70.8 % (42-75.0); Platelet Count 100 K/mm3 (150-450); Red Blood Count 4.05 M/mm3 (4.2-5.4); Red Cell Distribution Width 18.1 % (11.5-14.0); White Blood Count 12.3 K/mm3 (4.0-10.5)
[2017-11-26 06:28] LABS: Anion Gap 21.2 mmol/L (6.8-13.8); Calcium * 8.2 mg/dL (7.9-10.9); Estimated Creat Clear 15.4; Potassium 5.2 mmol/L (3.4-4.6)
[2017-11-26] MEDS: NORMAL SALINE 1,000 ML IV PRN ×3 (06:35→18:36)
[2017-11-26 06:42] LABS: BUN/Creatinine Ratio 20.9 (9.0-21.6)
[2017-11-26] MEDS: LEVOTHYROXINE SODIUM 125 MCG TABLET PO SCH (08:03)
[2017-11-26] MEDS: OXYBUTYNIN CHLORIDE 5 MG TABLET PO SCH ×2 (08:03→20:56)
[2017-11-26] MEDS ORDERED: DOCUSATE SODIUM 100 MG CAPSULE PO PRN (08:47)
[2017-11-26] MEDS ORDERED: FUROSEMIDE 20 MG TABLET PO SCH (09:00)
[2017-11-26] MEDS ORDERED: SPIRONOLACTONE 25 MG TABLET PO SCH (09:00)
[2017-11-26] MEDS: ANASTROZOLE 1 MG TABLET PO SCH (09:27)
[2017-11-26] MEDS: LACTOBACILLUS ACIDOPHILUS 100 CAP BTL PO SCH (09:27)
[2017-11-26] MEDS: CYANOCOBALAMIN 1,000 MCG TABLET PO SCH (09:28)
[2017-11-26] MEDS: LACTULOSE 10 G/15 ML BTL PO SCH ×4 (09:28→20:57)
[2017-11-26] MEDS: CHOLECALCIFEROL 1,000 UNIT CAPSULE PO SCH (09:29)
[2017-11-26] MEDS: PROPRANOLOL HCL 10 MG TABLET PO SCH ×2 (09:32→20:56)
[2017-11-26] MEDS ORDERED: ACETAMINOPHEN 325 MG TABLET PO PRN (09:36)
[2017-11-26] MEDS: HEPARIN SODIUM,PORCINE 5,000 UNITS/ML VIAL SC SCH ×2 (10:06→21:07)
[2017-11-26] MEDS: PANTOPRAZOLE SODIUM 40 MG TABLET.EC PO SCH (10:06)
[2017-11-26] MEDS ORDERED: PANTOPRAZOLE SODIUM 40 MG in NORMAL SALINE 50 ML IV SCH (11:15)
[2017-11-26] MEDS: INSULIN LISPRO 100 UNITS/ML VIAL SC SCH ×2 (12:02→17:11)
--- NOTE | 2017-11-26 15:42 | PN ---
Subjective - Date and Time Seen Date: 11/26/17 Time: 11:00 Subjective Narrative: Patient seen and examined at bedside. No acute issues overnight. Patient states that she continues to feel unwell but states it is more a generalized feeling and is unable to pinpoint what doesn't feel right. Objective - Review of Systems Generalized/Overall Review: Reports: Weakness, Fatigue EENTM: Reports: No Symptoms Reported Respiratory: Reports: No Symptoms Reported Cardiac: Reports: No Symptoms Reported Abdominal: Reports: Nausea, Abdominal Pain, Diarrhea. Denies: Vomiting Genitourinary Symptoms: Reports: No Symptoms Reported Musculoskeletal Complaints: Reports: No Symptoms Reported Neurological: Reports: No Symptoms Reported Skin: Reports: No Symptoms Reported Endocrine: Reports: No Symptoms Reported Misc: All systems neg except as marked - Vitals Vitals: Last Vital Signs Temp 36.7 C 11/26/17 14:51 Pulse 68 11/26/17 14:51 Resp 18 11/26/17 14:51 BP 127/41 11/26/17 14:51 Pulse Ox 95 11/26/17 14:51 - Abnormal Lab Findings Abnormal Lab Findings: Abnormal Lab Results 11/25/17 11/26/17 11/26/17 Range/Units 18:28 06:05 06:05 WBC 12.3 H (4.0-10.5) K/mm3 RBC 4.05 L (4.2-5.4) M/mm3 MCH 35.1 H (27-31) pg RDW 18.1 H (11.5-14.0) % Plt Count 100 L (150-450) K/mm3 Immature Gran % (Auto) 4.30 H (0.001-0.429) % Immature Gran # (Auto) 0.53 H (0.000-0.0310) K/mm3 Lymphocytes % 16.0 L (20-51) % Neutrophils # 8.7 H (1.3-6.0) K/mm3 Sodium 131 L (132-142) mmol/L Potassium 5.2 H (3.4-4.6) mmol/L Carbon Dioxide 12.0 L (24-32.6) mmol/L Anion Gap 21.2 H (6.8-13.8) mmol/L BUN 52 H (3-23) mg/dL Creatinine 2.49 H (0.4-1.4) mg/dL Est GFR (Non-Af Amer) 20 L (60-130) mL/min Random Glucose 125 H (70-110) mg/dL Lactic Acid, Venous 3.0 H* (0.4-1.9) mmol/L - Exam Constitutional: Present: Alert, Oriented x3, Cooperative, No distress, Elderly, Obese ENT Exam: Present: moist mucous membranes Respiratory: Present: lungs clear, normal breath sounds, no respiratory distress , no accessory muscle use Cardiovascular/Chest: Present: regular rate, rhythm Abdomen: Present: soft, nontender, nondistended, no rebound tenderness, obese Extremity: Present: normal inspection Skin Exam: Present: warm/dry Neurologic: Present: alert, normal mood/affect, oriented x 3 Eye contact: Present: cooperative Thoughts: Present: normal thought pattern, no apparent hallucination Assessment/Plan Plan Narrative: Continue IVF hydration. Recheck labs in AM. Plan is for patient to discharge to [place] in [place] as private pay tomorrow (11/27/2017). I will plan to have the patient establish care with hepatology at [facility] for further evaluation and management of the patient's newly diagnosed liver cirrhosis. - Problems/Diagnosis (1) Generalized weakness Problem: Acute (2) Acute on chronic kidney failure Problem: Acute (3) Elevated lactic acid level Problem: Acute (4) Elevated serum creatinine Problem: Acute (5) Hyponatremia Problem: Acute (6) Breast cancer metastasized to bone Problem: Chronic (7) Liver cirrhosis Problem: Acute Qualifiers: Ascites presence: with ascites
[2017-11-27] MEDS: LACTULOSE 10 G/15 ML BTL PO SCH ×3 (01:13→08:17)
[2017-11-27] MEDS: NORMAL SALINE 1,000 ML IV PRN ×3 (01:26→16:19)
[2017-11-27 06:29] LABS: Anion Gap 25.1 mmol/L (6.8-13.8); Calcium * 7.7 mg/dL (7.9-10.9); Carbon Dioxide 9.6 mmol/L (24-32.6); Potassium 5.7 mmol/L (3.4-4.6)
[2017-11-27] MEDS: PANTOPRAZOLE SODIUM 40 MG TABLET.EC PO SCH (06:57)
[2017-11-27] MEDS: INSULIN LISPRO 100 UNITS/ML VIAL SC SCH ×3 (06:57→16:42)
[2017-11-27] MEDS: LEVOTHYROXINE SODIUM 125 MCG TABLET PO SCH (06:58)
[2017-11-27] MEDS: ANASTROZOLE 1 MG TABLET PO SCH (08:16)
[2017-11-27] MEDS: LACTOBACILLUS ACIDOPHILUS 100 CAP BTL PO SCH (08:16)
[2017-11-27] MEDS: OXYBUTYNIN CHLORIDE 5 MG TABLET PO SCH (08:17)
[2017-11-27] MEDS: CHOLECALCIFEROL 1,000 UNIT CAPSULE PO SCH (08:18)
[2017-11-27] MEDS: PROPRANOLOL HCL 10 MG TABLET PO SCH (08:18)
[2017-11-27] MEDS: CYANOCOBALAMIN 1,000 MCG TABLET PO SCH (08:18)
[2017-11-27] MEDS: NYSTATIN 15 APPL BTL TP SCH ×2 (09:09→20:54)
[2017-11-27] MEDS: HEPARIN SODIUM,PORCINE 5,000 UNITS/ML VIAL SC SCH ×2 (09:09→20:55)
[2017-11-27] MEDS ORDERED: ALBUMIN HUMAN 12.5 G in Premix Bag 1 BAG IV ONE (11:47)
--- NOTE | 2017-11-27 13:50 | PN ---
Subjective - Date and Time Seen Date: 11/27/17 Time: 13:45 Subjective Narrative: Patient seen and examined at bedside. Patient states that she continues to feel unwell and states that she is just so weak. Objective - Review of Systems Generalized/Overall Review: Reports: Weakness, Fatigue EENTM: Reports: No Symptoms Reported Respiratory: Reports: No Symptoms Reported Cardiac: Reports: No Symptoms Reported Abdominal: Reports: Diarrhea Genitourinary Symptoms: Reports: No Symptoms Reported Musculoskeletal Complaints: Reports: No Symptoms Reported Neurological: Reports: No Symptoms Reported Skin: Reports: No Symptoms Reported Endocrine: Reports: No Symptoms Reported Misc: All systems neg except as marked - Vitals Vitals: Last Vital Signs Temp 36.7 C 11/27/17 11:07 Pulse 82 11/27/17 11:07 Resp 20 11/27/17 11:07 BP 134/78 11/27/17 11:07 Pulse Ox 94 11/27/17 11:07 - Exam Constitutional: Present: Alert, Oriented x3, No distress, Elderly, Obese ENT Exam: Present: moist mucous membranes Respiratory: Present: lungs clear, normal breath sounds, no respiratory distress , no accessory muscle use Cardiovascular/Chest: Present: regular rate, rhythm, edema - 1+ pitting edema in bilateral LEs Abdomen: Present: soft, nontender, no rebound tenderness Extremity: Present: normal inspection, lower extremity edema - 1+ pitting edema in bilateral LEs Skin Exam: Present: warm/dry Neurologic: Present: alert, oriented x 3 Appearance: Present: appropriate appearance, appropriate insight Eye contact: Present: cooperative Thoughts: Present: normal thought pattern, no apparent hallucination Assessment/Plan Plan Narrative: Worsening kidney function despite holding nephrotoxic medications and giving IV fluid hydration. I am concerned that the patient has developed hepatorenal syndrome type 2. This is a diagnosis of exclusion and thus we need to make sure there is not any other underlying etiology for the patient's OSMANY. Strict I&Os. Daily standing weight. Check urine and serum osmolality. Check urine sodium, creatinine and urea nitrogen. Continue low salt and carb consistent diet. Admit the patient to inpatient as she will require at least 2-3 days in the hospital while undergoing further work-up and treatment of her OSMANY. We will plan to treat with 2 days of IV albumin 1g/kg per day starting tomorrow (11/28/2017) as we do not have the amount of albumin available today but will order it for tomorrow. Renal ultrasound unremarkable with no signs of obstruction or parenchymal renal disease. Given patient's known active metastatic breast cancer and her increased weakness/decreased activity, the patient is at an elevated risk for VTE so I have started her on Heparin Q12H and SCDs. Continue PT and OT evaluation and management. - Problems/Diagnosis (1) OSMANY (acute kidney injury) Problem: Acute (2) Hepatorenal syndrome Problem: Suspected (3) Generalized weakness Problem: Acute (4) Elevated lactic acid level Problem: Acute (5) Elevated serum creatinine Problem: Acute (6) Hyponatremia Problem: Acute (7) Breast cancer metastasized to bone Problem: Chronic (8) Liver cirrhosis Problem: Acute Qualifiers: Ascites presence: with ascites (9) Hyperkalemia Problem: Acute (10) Hyperkalemia, diminished renal excretion Problem: Acute
[2017-11-28] MEDS ORDERED: FUROSEMIDE 10 MG/ML VIAL IV ONE (06:19)
[2017-11-28] MEDS: INSULIN LISPRO 100 UNITS/ML VIAL SC SCH (07:18)
[2017-11-28] MEDS: PANTOPRAZOLE SODIUM 40 MG TABLET.EC PO SCH (07:23)
[2017-11-28] MEDS: LEVOTHYROXINE SODIUM 125 MCG TABLET PO SCH (07:23)
[2017-11-28] MEDS ORDERED: MORPHINE SULFATE 2 MG/ML DISP.SYRIN IV ONE (07:44)
[2017-11-28] MEDS ORDERED: ALBUTEROL SULFATE/IPRATROPIUM 3 ML NEBU IH PRN (07:45)
[2017-11-28] MEDS ORDERED: SENNOSIDES/DOCUSATE SODIUM 1 TAB TABLET PO PRN (08:48)
[2017-11-28] MEDS ORDERED: ATROPINE SULFATE 150 DROP BTL SL PRN (08:48)
[2017-11-28] MEDS ORDERED: PROMETHAZINE HCL 12.5 MG SUPP.RECT RC PRN (08:48)
[2017-11-28] MEDS ORDERED: POLYVINYL ALCOHOL 150 DROP BTL EACHEYE PRN (08:48)
[2017-11-28] MEDS ORDERED: BISACODYL 10 MG SUPP.RECT RC PRN (08:48)
[2017-11-28] MEDS ORDERED: HYDROPHILIC OINTMENT 454 APPL JAR TP PRN (08:48)
[2017-11-28] MEDS ORDERED: LORazepam 2 MG/ML DISP.SYRIN IV PRN (08:48)
[2017-11-28] MEDS ORDERED: guaiFENesin/DEXTROMETHORPHAN 118 ML BTL PO PRN (08:48)
[2017-11-28] MEDS ORDERED: ONDANSETRON HCL/PF 2 MG/ML VIAL IV PRN (08:48)
[2017-11-28] MEDS ORDERED: MORPHINE SULFATE 10 MG/0.5 ML SYRINGE PO PRN (08:48)
[2017-11-28] MEDS ORDERED: ZOLPIDEM TARTRATE 5 MG TABLET PO PRN (08:48)
[2017-11-28] MEDS ORDERED: MORPHINE SULFATE 4 MG/ML SYRG IV PRN (08:48)
[2017-11-28] MEDS: NYSTATIN 15 APPL BTL TP SCH (09:51)
[2017-11-28] MEDS ORDERED: ALBUMIN HUMAN 12.5 G/50 ML BTL IV SCH (10:00)
--- NOTE | 2017-11-28 11:21 | DS ---
(1) OSMANY (acute kidney injury) Problem: Acute (2) Hepatorenal syndrome Problem: Acute (3) Generalized weakness Problem: Acute (4) Elevated lactic acid level Problem: Acute (5) Elevated serum creatinine Problem: Acute (6) Hyponatremia Problem: Acute (7) Breast cancer metastasized to bone Problem: Chronic (8) Liver cirrhosis Problem: Acute Qualifiers: Ascites presence: with ascites (9) Hyperkalemia Problem: Acute (10) Hyperkalemia, diminished renal excretion Problem: Acute Description of Stay: ADMISSION DATE: 11/25/2017 DISCHARGE DATE: 11/28/2017 ADMISSION HPI by CORNELIUS Guy: Mrs. Kaiser is a 82-yr-old WF pt of Dr. Gina Jaramillo with a PMH of: Breast Ca with bone mets, Chronic Renal Failure, Cirrhosis of the Liver with Ascites, DM II, Depression, HTN & Hypothyroidism. Pt states that since being discharged from the hospital this week, she has gotten more weaker and cannot care for herself. She reports having n/v and diarrhea for the last three days. She denies the associated symptoms of fevers, chills and abdominal pain. She was brought to [facility] ER this evening by the EMS. She was recently admitted on 11/22/17 due to generalized weakness and was discharged home on 11/23 following uneventful hospital stay and arrangements with [facility] for PT/OT were made. Prior to previous hospitalization, she had been found to have Ascites due to Liver Cirrhosis on . She had abdominal paracentesis on 11/21 where 3.7 L of fluid was drained for therapetic and diagnostic purposes. On discharge date, she was started on new meds: Furosemide 20mg daily, Spironolactone 50mg daily, Propranolol 10mg BID , Lactulose 10g Q4H (titrated to 2-3 soft BMs per day). At the ED today, Lab studies showed WBC--> 12,200, Lactic acid--> 3.3, Na+--> 129, K+--> 4.9, BUN/CR- ->45/2.31, Total Bili-->1.7, AST-->315, ALP--> 303. UA was negative for infection. Influenza screen was also negative. She had an abdominal US to assess for Ascites and there was significantly less fluid seen compared to the US on 11/21, but mild ascites was noted. HOSPITAL COURSE: The patient was admitted to the hospital for an acute kidney injury which was originally thought to be secondary to decreased intravascular volume due to recently starting Lasix and spironolactone as well as lactulose which caused diarrhea. All of these medications were recently started within the prior week for her newly diagnosed portal hypertension and liver cirrhosis with ascites. However, despite holding nephrotoxic medications and giving IV fluid hydration, the patients kidney function continued to deteriorate and she continued to have marked oliguria. Unfortunately, the patient had developed hepatorenal syndrome type 2. Renal ultrasound unremarkable with no signs of obstruction or parenchymal renal disease. We attempted to obtain urinary studies for further confirmation of hepatorenal syndrome, however the patient was not making urine and therefore we were unable to obtain these studies. The definitive treatment of hepatorenal syndrome is treatment of the underlying liver disease if possible and if not, sometimes a TIPS procedure or dialysis is used as a bridge until liver transplantation. Given patient's known active metastatic breast cancer, she would not be a liver transplant candidate and thus the decision was made to involve hospice and change the patient to comfort cares only. The patient will be discharged and readmitted to inpatient hospice. I believe that the patient will likely within the next 24-48 hours, if not later today. Procedures Performed: none Discharge Disposition: Inpatient Hospice Disposition: Other health care facility Condition: Poor Discharge Activity: Activity as tolerated Discharge Diet: General/regular food Referrals: Gina Jaramillo DO [Primary Care Provider] - Additional Patient Instructions (free text): -Please make TCM appointment unless mcc discharge. Thank you! Avis @ [phone]. Complete Home Medications List: Complete Home Medication List: Docusate Sodium [Colace] 100 mg PO BID PRN #30 capsule 01/09/14 Acetaminophen [Tylenol] 650 mg PO QID PRN tablet 11/28/17 Albuterol Sulfate/Ipratropium [Duoneb 2.5-0.5MG/3ML Soln] 3 ml IH Q4HRT PRN nebu 11/28/17 Atropine Sulfate [Atropine 1% Ophthalmic Solution] 2 drop SL Q2H PRN btl Bisacodyl [Dulcolax Suppository] 10 mg RC PRN PRN supp.rect 11/28/17 Hydrophilic Ointment [Aquaphilic Ointment] 1 appl TP BID PRN jar 11/28/17 LORazepam [Ativan] 1 mg IV Q2H PRN disp.syrin 11/28/17 Morphine Sulfate 4 mg IV Q15M PRN disp.syrin 11/28/17 Morphine Sulfate [Morphine Sulfate Conc. Oral Solution] 5 mg PO Q1H PRN syringe 11/28/17 Nystatin [Mycostatin Powder] 1 appl TP BID btl 11/28/17 Ondansetron HCl/Pf [Zofran] 4 mg IV Q4H PRN vial 11/28/17 Polyvinyl Alcohol [Artificial Tears] 2 drop EACHEYE PRN PRN btl 11/28/17 Promethazine HCl [Phenergan Suppository] 12.5 mg RC Q4H PRN supp.rect 11/28/17 Sennosides/Docusate Sodium [Senokot-S] 2 tab PO HS PRN tablet 11/28/17 Zolpidem Tartrate [Ambien] 5 mg PO HS PRN tablet 11/28/17 guaiFENesin/DEXTROMETHORPHAN [Robitussin-Dm] 10 ml PO Q4H PRN btl 11/28/17
[2017-11-29 09:14] VITALS: BP 127/44
[2017-11-29] MEDS ORDERED: ALBUMIN HUMAN 12.5 G/50 ML BTL IV SCH (10:00)
== END 2017-11-28 11:28 | disposition hospice, home (50) | DRG 640 ==
LOC: ER 15:37 → MS 16:55 → OBSVTOIN 11-27 13:23
PROVIDERS: ADMIT Internal Medicine; ATTEND Internal Medicine
DX: E11.22 Type 2 diabetes mellitus with diabetic chronic kidney disease; E87.1 Hypo-osmolality and hyponatremia; D72.829 Elevated white blood cell count, unspecified; N18.9 Chronic kidney disease, unspecified; C78.7 Secondary malignant neoplasm of liver and intrahepatic bile duct; I10 Essential (primary) hypertension; C50.919 Malignant neoplasm of unspecified site of unspecified female breast; I12.9 Hypertensive chronic kidney disease with stage 1 through stage 4 chronic kidney disease, or unspecified chronic kidney disease; E78.5 Hyperlipidemia, unspecified; R18.8 Other ascites; R53.1 Weakness; Z79.84 Long term (current) use of oral hypoglycemic drugs; E03.9 Hypothyroidism, unspecified; K74.60 Unspecified cirrhosis of liver; E87.5 Hyperkalemia; K75.81 Nonalcoholic steatohepatitis (NASH); C79.51 Secondary malignant neoplasm of bone; Z87.891 Personal history of nicotine dependence; E86.0 Dehydration; K76.7 Hepatorenal syndrome; N17.9 Acute kidney failure, unspecified
CPT/HCPCS: 36415; 76705; 76770; 80048; 80053; 81001; 82140; 83605; 83690; 83930; 84484; 85025; 87040; 87400; 93005; 94640; 97110; 97116; 97162; 97165; 97530; 99285; G0378; G8978; G8979; G8980; G8987; G8988; G8989